=== PATIENT | male | born 1960 | race Two or more races ===

== ENCOUNTER → 2016-12-05 | Outpatient (REF) | payer OTHER ==
[2016-12-05 11:04] LABS: MEAN CORPUSCULAR HEMOGLOBIN 31.7 pg (27.0-33.0); MEAN CORPUSCULAR HGB CONC 34.6 g/dl (32.0-36.5); MEAN CORPUSCULAR VOLUME 91.4 fl (80.0-96.0); RED CELL DISTRIBUTION WIDTH 12.5 % (11.5-14.5); WHITE BLOOD COUNT 8.1 K/mm3 (4.0-10.0)
[2016-12-05 11:59] LABS: ALBUMIN 3.3 GM/DL (3.2-5.2); ALBUMIN/GLOBULIN RATIO 0.85 (1.00-1.93); ALKALINE PHOSPHATASE 95 U/L (45-117); ALT/SGPT 35 U/L (12-78); ANION GAP 6 MEQ/L (8-16); AST/SGOT 15 U/L (15-37); BILIRUBIN,TOTAL 0.5 MG/DL (0.2-1.0); BLOOD UREA NITROGEN 12 MG/DL (7-18); CALCIUM LEVEL 8.9 MG/DL (8.5-10.1); CARBON DIOXIDE LEVEL 29 MEQ/L (21-32); CHLORIDE LEVEL 105 MEQ/L (98-107); CHOLESTEROL LEVEL 167 MG/DL (<200); CREATININE FOR GFR 1.05 MG/DL (0.70-1.30); GLOMERULAR FILTRATION RATE > 60.0 (>56); GLUCOSE, FASTING 96 MG/DL (70-105); POTASSIUM SERUM 4.7 MEQ/L (3.5-5.1); SODIUM LEVEL 140 MEQ/L (136-145); TOTAL PROTEIN 7.2 GM/DL (6.4-8.2); TRIGLYCERIDES LEVEL 301 MG/DL (<150)
== END ==
LOC: M SFHCLERA 08:49
PROVIDERS: ATTEND Family Medicine
DX: I10 Essential (primary) hypertension (principal)

== ENCOUNTER 2017-04-13 08:40 | Day surgery (SDC) | payer OTHER ==
[~2017-04-13] VITALS: Ht 167.6 cm; Wt 68.9 kg
[2017-04-13] MEDS ORDERED: NS 500 ML IV ONE (09:15)
[2017-04-13] MEDS ORDERED: LIDOCAINE 2% INJ 100 MG/5 ML SDV (FOR ANES.) As Ordered ONE (10:09)
[2017-04-13] MEDS ORDERED: PROPOFOL 200 MG/20 ML VIAL As Ordered ONE (10:09)
--- NOTE | 2017-04-13 10:34 | ROOR ---
Patient Name: Kyle Lu Procedure Date: 04/13/2017 10:07 AM Date of : 1960 Age: 57 Room: [facility] Gender: Male Note Status: Finalized Procedure: Colonoscopy Indications: Screening for colorectal malignant neoplasm Providers: Berto FAUST MD Referring MD: Bandar Giron MD Requesting Provider: Medicines: Monitored Anesthesia Care Complications: No immediate complications. Procedure: Pre-Anesthesia Assessment: - The heart rate, respiratory rate, oxygen saturations, blood pressure, adequacy of pulmonary ventilation, and response to care were monitored throughout the procedure. The Colonoscope was introduced through the anus and advanced to the cecum, identified by appendiceal orifice and ileocecal valve. The colonoscopy was performed without difficulty. The patient tolerated the procedure well. The quality of the bowel preparation was adequate and fair, required lavage for detail examination of ascending colon. Findings: The perianal and digital rectal examinations were normal. (EXAM: Complete, PREP: Fair/Adequate) A 3 mm polyp was found in the recto-sigmoid colon. The polyp was sessile. The polyp was removed with a jumbo cold forceps. Resection and retrieval were complete. The exam was otherwise without abnormality on direct and retroflexion views. Impression: - (EXAM: Complete, PREP: Fair/Adequate) - One 3 mm polyp at the recto-sigmoid colon, removed with a jumbo cold forceps. Resected and retrieved. - The colon examination was otherwise normal on direct and retroflexion views. Recommendation: - Telephone endoscopist for pathology results in 2 weeks. - Repeat colonoscopy in 5 years because the bowel preparation was suboptimal. Berto Faust MD Berto FAUST MD 04/13/2017 10:34:12 AM This report has been signed electronically. Number of Addenda: 0 Note Initiated On: 04/13/2017 10:07 AM Estimated Blood Loss: Estimated blood loss: none.
[2017-04-13 10:50] VITALS: BP 118/82
== END 2017-04-13 11:05 | disposition home or self-care (01) ==
LOC: M OPP 08:40
PROVIDERS: ATTEND Internal Medicine Gastroenterology
DX: Z12.11 Encounter for screening for malignant neoplasm of colon (principal); K63.5 Polyp of colon; Z87.891 Personal history of nicotine dependence; Z80.8 Family history of malignant neoplasm of other organs or systems

== ENCOUNTER → 2018-06-15 | Outpatient (REF) | payer OTHER | LOC: M SFHCPLAZ 11:26 | PROVIDERS: ATTEND Nurse Practitioner Family | DX: I10 Essential (primary) hypertension (principal); Z13.228 Encounter for screening for other metabolic disorders; E55.9 Vitamin D deficiency, unspecified ==

== ENCOUNTER → 2018-06-18 | Outpatient (REF) | payer OTHER ==
[2018-06-18 11:26] LABS: BASO # 0.1 10^3/uL (0.0-0.2); BASO % 0.9 % (0.0-1.0); EOS # 0.1 10^3/uL (0.0-0.50); EOS % 1.7 % (0.0-3.0); HEMATOCRIT 46.5 % (42.0-52.0); HEMOGLOBIN 16.3 g/dl (13.5-17.5); LYMPH # 1.5 10^3/uL (1.5-4.5); LYMPH % 19.1 % (24.0-44.0); MEAN CORPUSCULAR HEMOGLOBIN 30.9 pg (27.0-33.0); MEAN CORPUSCULAR HGB CONC 35.1 g/dl (32.0-36.5); MEAN CORPUSCULAR VOLUME 88.2 fl (80.0-96.0); MONO # 1.3 10^3/uL (0.0-0.8); MONO % 17.4 % (0.0-5.0); NEUTROPHILS # 4.6 10^3/uL (1.8-7.7); NEUTROPHILS % 60.6 % (36.0-66.0); PLATELET COUNT, AUTOMATED 220 10^3/uL (150-450); RED BLOOD COUNT 5.27 10^6/uL (4.30-6.10); WHITE BLOOD COUNT 7.6 10^3/uL (4.0-10.0)
[2018-06-18 11:36] LABS: ALBUMIN 3.1 GM/DL (3.2-5.2); ALT/SGPT 39 U/L (12-78); BILIRUBIN,TOTAL 0.4 MG/DL (0.2-1.0); BLOOD UREA NITROGEN 10 MG/DL (7-18); CALCIUM LEVEL 8.1 MG/DL (8.5-10.1); CARBON DIOXIDE LEVEL 26 MEQ/L (21-32); CHLORIDE LEVEL 108 MEQ/L (98-107); CHOLESTEROL LEVEL 126 MG/DL (<200); CHOLESTEROL RISK RATIO 3.315 (<5); CREATININE FOR GFR 0.88 MG/DL (0.70-1.30); GLOMERULAR FILTRATION RATE > 60.0 (>56); GLUCOSE, FASTING 97 MG/DL (70-100); HDL CHOLESTEROL 38 MG/DL (>40); LDL CHOLESTEROL 54 MG/DL (<100); MAGNESIUM LEVEL 2.1 MG/DL (1.8-2.4); NON-HDL-C 88 MG/DL; POTASSIUM SERUM 4.4 MEQ/L (3.5-5.1); SODIUM LEVEL 141 MEQ/L (136-145); THYROID STIMULATING HORMONE 0.549 uIU/ML (0.358-3.740); TOTAL PROTEIN 6.7 GM/DL (6.4-8.2); TRIGLYCERIDES LEVEL 170 MG/DL (<150)
[2018-06-18 11:38] LABS: TOTAL 25(OH) VITAMIN D 29.9 NG/ML (30.0-100.0)
[2018-06-18 12:03] LABS: HEMOGLOBIN A1c 5.3 %
[2018-06-18 12:09] LABS: CREATININE, URINE 79.4 MG/DL; MALB URINE SIEMENS 5.6 MG/L
== END ==
LOC: M SFHCPLAZ 08:37
PROVIDERS: ATTEND Nurse Practitioner Family
DX: I10 Essential (primary) hypertension (principal); Z13.228 Encounter for screening for other metabolic disorders; E55.9 Vitamin D deficiency, unspecified

== ENCOUNTER → 2018-06-22 | Outpatient (CLI) | payer OTHER ==
--- NOTE | 2018-06-22 08:11 | REP ---
Clinical: Hypertension and chronic medical renal disease. Technique: Hyde scale and color Doppler evaluation of the kidneys and renal vasculature using curved array transducer. Findings: The kidneys are essentially normal in contour size and echogenicity and reniform shape without hydronephrosis, nephrolithiasis, cystic or renal mass lesion. Right kidney measures 11.5 x 5.2 x 5.9 cm. Left kidney measures 10.9 x 5.0 x 5.5 cm and includes 7 mm angiomyolipoma. Bladder is incompletely distended and grossly normal by current evaluation. Color Doppler evaluation of the renal vasculature demonstrates normal arterial wave patterns, velocities, renal aortic ratios, resistive indices and the acceleration time. No sonographic evidence for renal arterial stenosis noted. Renal vein is patent. Right Kidney: Peak arterial velocity: 156 cm/s. Renal aortic ratio: 2.1. Resistive indices: 0.54 - 0.60. Acceleration times: 0.031 - 0.045. Left kidney: Peak arterial velocity: 130 cm/s. Renal aortic ratio: 1.7. Resistive indices: 0.53 - 0.61. Acceleration times: 0.050 - 0.067. Impression: Essentially normal Renal ultrasound. No sonographic evidence for significant renal arterial stenosis. Electronically Signed by Kyle Burkett MD 06/22/2018 08:02 A
== END ==
LOC: M RAD 06:48
PROVIDERS: ATTEND Nurse Practitioner Family
DX: I10 Essential (primary) hypertension (principal)